=== PATIENT | male | born 1995 | race Caucasian/White ===

== ENCOUNTER 2024-05-05 00:29 | Emergency (ER) | payer OTHER, SELFPAY ==
[2024-05-05] VITALS (8 sets, daily range): BP systolic 100–133; BP diastolic 61–72; PULSE 104–118; RESP 14–16; TEMP 36.6; O2SAT 95–98; BMI 25.3
--- NOTE | 2024-05-05 00:42 | ED.GENADULT ---
HPI - General Adult General Chief complaint: Back Pain/Injury Stated complaint: lower back pain Time Seen by Provider: 05/05/24 00:37 Source: patient Mode of arrival: Ambulatory Limitations: no limitations History of Present Illness HPI narrative: 28-year-old male who is here for evaluation of several hours of what initially started as lower back discomfort but is now radiating around to the front of his abdomen. He did have a bowel movement since the onset of the symptoms which did not change any of his discomfort. No urinary symptoms. No diarrhea. No recent travel. No recent antibiotics. No nausea or vomiting. No fevers. Has not tried anything for the symptoms prior to arrival. Denies any specific trauma. Review of Systems Review of Systems Narrative: See HPI Patient History Social History Smoking Status: Current some day smoker Exam Initial Vital Signs Initial Vital Signs: Vital Signs Pulse Oximetry 97 05/05/24 00:34 Const General: cooperative, comfortable and No ill appearing HENMT Head: normal to inspection and normocephalic Resp Effort & Inspection: normal respiratory effort Auscultation: clear to auscultation bilaterally Cardio Rate: regular rate GI Inspection: normal to inspection and non-distended Palpation: No firm, No guarding and tender Back/Spine/Pelvis Thoracic/Lumbar Spine: paraspinal tenderness, No thoracic spinal tenderness and lumbar spinal tenderness Neuro General: patient alert, patient awake and moves all extremities Course Orders Ordered: ED Orders 05/05/24 00:43 CT abdomen pelvis w con Stat 05/05/24 00:50 Urine Microscopic Stat 05/05/24 00:54 Complete Blood Count AUTO DIFF Stat Comprehensive Metabolic Panel Stat Lipase Stat Discontinued Medications Ketorolac Tromethamine (Ketorolac 30 Mg/Ml Vial) 15 mg IV NOW ONE Stop: 05/05/24 00:43 Last Admin: 05/05/24 00:54 Dose: 15 mg Documented By: ABRAHAM Vital Signs Vital signs: Vital Signs - 8 hr 05/05/24 00:34 05/05/24 00:35 05/05/24 00:35 Temperature Pulse Rate 118 H Respiratory Rate Blood Pressure 133/72 Pulse Oximetry 97 97 Oxygen Delivery Method 05/05/24 00:36 05/05/24 00:53 05/05/24 00:53 Temperature 97.9 F Pulse Rate 112 H 114 H Respiratory Rate 16 16 Blood Pressure 133/72 100/67 Pulse Oximetry 97 98 Oxygen Delivery Method Room Air Room Air 05/05/24 01:14 05/05/24 01:14 05/05/24 01:30 Temperature Pulse Rate 110 H Respiratory Rate 16 Blood Pressure 102/61 103/62 Pulse Oximetry 97 Oxygen Delivery Method Room Air 05/05/24 01:30 05/05/24 01:59 05/05/24 02:00 Temperature Pulse Rate 107 H 104 H Respiratory Rate 14 Blood Pressure 109/70 Pulse Oximetry 96 95 Oxygen Delivery Method Room Air Medical Decision Making Lab Data Lab results reviewed: Yes I reviewed the patient's lab results. 05/05/24 00:54 05/05/24 00:54 Labs: Lab Results 05/05/24 05/05/24 Range/Units 00:50 00:54 WBC 12.1 H (4.5-11.0) X10^3/uL RBC 5.43 (4.5-5.9) X10^6/uL Hgb 16.2 (13.5-17.5) g/dL Hct 47.2 (41-53) % MCV 86.9 (80-100) fL MCH 29.9 (26-34) PG MCHC 34.4 (30-36) % RDW 13.1 (11.6-14.8) % Plt Count 293 (150-400) X10^3/uL Neut % (Auto) 91.1 H (50-75) % Lymph % (Auto) 3.3 L (25-40) % [place] % (Auto) 4.6 (3-14) % Eos % (Auto) 0.6 L (2-4) % Baso % (Auto) 0.4 (0-2) % Neut # (Auto) 50544 H (3041-3662) /uL Lymph # (Auto) 400 L (9046-8000) /uL [place] # (Auto) 600 (0-900) /uL Eos # (Auto) 100 (0-450) /uL Baso # (Auto) 0 (0-100) /uL Sodium 136 L (137-145) mmol/L Potassium 3.9 (3.4-5.1) mmol/L Chloride 104 (98-107) mmol/L Carbon Dioxide 22 (22-32) mmol/L BUN 18 (9-20) mg/dL Creatinine 0.86 (0.66-1.25) mg/dL Estimated GFR > 60 (>60) mL/min BUN/Creatinine Ratio 20.9 (6-22) Glucose 121 H (70-100) mg/dL Calcium 9.2 (8.4-10.2) mg/dL Total Bilirubin 0.9 (0.2-1.3) mg/dL AST 32 (17-59) IU/L ALT 28 (<50) IU/L Alkaline Phosphatase 51 (38-126) U/L Total Protein 7.3 (6.3-8.2) g/dL Albumin 4.6 (3.5-5.0) g/dL Globulin 2.7 (1.7-4.1) g/dL Albumin/Globulin Ratio 1.7 (1.0-2.8) Lipase 108 (23-300) U/L Urine RBC None seen (0-5/HPF) Urine WBC None seen (0-5/HPF) Ur Squamous Epith Cells 0-1 /hpf (0-5/HPF) Urine Bacteria None seen (None) Ur Culture Indicated? Cult not indicated Vol Urine Centrifuged 10ml (spun) Urine Dip Bedside Urine Glucose Negative Bedside Urine Bilirubin + 1 Bedside Urine Ketone ++ 40 Urine Specific [place] 1.025 Bedside Urine Occult Blood - Negative Bedside Urine pH 6 Bedside Urine Protein +/- 15 Bedside Urine Urobilinogen +/- 1mg Bedside Urine Nitrite - Negative Bedside Urine Leukocytes +/- 15 Esterase Point of care testing: Urine Dip Bedside Urine Glucose Negative Bedside Urine Bilirubin + 1 Bedside Urine Ketone ++ 40 Urine Specific [place] 1.025 Bedside Urine Occult Blood - Negative Bedside Urine pH 6 Bedside Urine Protein +/- 15 Bedside Urine Urobilinogen +/- 1mg Bedside Urine Nitrite - Negative Bedside Urine Leukocytes +/- [address] scan - abdomen/pelvis: Radiologist's Impression: PROCEDURE: CT ABDOMEN PELVIS W CON INDICATIONS: Generalized abdominal and low back pain TECHNIQUE: After the administration of intravenous contrast, axial sections acquired from the lung bases to the pubic symphysis. Coronal and sagittal reformats were performed. For radiation dose reduction, the following was used: automated exposure control, adjustment of mA and/or kV according to patient size. COMPARISON: None. FINDINGS: Image quality: Diagnostic. Lower Chest: No significant findings. ABDOMEN: Liver: No solid mass. Gallbladder: No radiopaque gallstones or wall thickening. Biliary ducts: No biliary dilation. Pancreas: No ductal dilation. Spleen: Size is within normal limits. Adrenal Glands: No adrenal nodules. Kidneys and Ureters: No hydronephrosis. No solid mass. No complex renal cystic lesion which requires follow up. Nonobstructing 4 mm calculus at the interpolar region of the left kidney. Stomach and Bowel: Liquid stool material is seen in the colon. Small appendiceal stump without inflammatory changes. Nondilated fluid-filled loops of small bowel are seen throughout the abdomen with mild bowel wall thickening. Peritoneum: No abnormal intraperitoneal fluid. No free air. Ventral Wall: No significant ventral hernia. Abdominal Nodes: No retroperitoneal or mesenteric adenopathy by size criteria. Vessels: Aorta and inferior vena cava are normal in size. PELVIS: Pelvic Organs: Unremarkable. Bladder: No bladder wall thickening, accounting for underdistention. Pelvic Nodes: No enlarged lymph nodes. Miscellaneous: No inguinal hernias are seen. Bones: No aggressive osseous abnormality. IMPRESSION: 1. Nondilated fluid-filled loops of small large bowel in the abdomen with mild bowel wall thickening, suspicious for a nonspecific enterocolitis. 2. Non-obstructing 4 mm calculus at the interpolar region of the left kidney. No hydronephrosis. MDM Narrative Medical decision making narrative: CT scan is consistent with the enterocolitis. His labs are unremarkable. I have low suspicion for aortic pathology. Low suspicion for kidney stone/ureteral stone he was had his appendix removed. There was no indication for antibiotics. No indication for surgical consultation discharge return precautions. He expressed understanding and agreement with plan. Discharge Plan Departure Patient Disposition: Home Clinical Impression: Enterocolitis Instructions: DI for Abdominal Pain-Adult Activity Restrictions/Additional Instructions: I would recommend a bland diet for the next couple days. You may develop some loose stools/diarrhea during this time as well. Be sure that you are staying hydrated. Return to the emergency department for new or worsening symptoms. Stand Alone Forms: Patient Portal/API/Survey
[2024-05-05] MEDS: KETOROLAC 30 MG/ML VIAL 15 MG IV (00:54)
--- NOTE | 2024-05-05 01:02 | PC.NURSE ---
Pt ambulatory to restroom where pt reports an episode of diarrhea, then to imaging via wheel chair with tech.
[2024-05-05 01:09] LABS: Add Manual Diff / Slide Review NO; Basophils Absolute Auto 0 /uL (0-100); Basophils Percent Auto 0.4 % (0-2); Eosinophils Absolute Auto 100 /uL (0-450); Eosinophils Percent Auto 0.6 % (2-4); Hematocrit 47.2 % (41-53); Hemoglobin 16.2 g/dL (13.5-17.5); Lymphocytes Absolute Auto 400 /uL (1100-4500); Lymphocytes Percent Auto 3.3 % (25-40); Mean Corpuscular HGB Conc 34.4 % (30-36); Mean Corpuscular Hemoglobin 29.9 PG (26-34); Mean Corpuscular Volume 86.9 fL (80-100); Monocytes Absolute Auto 600 /uL (0-900); Monocytes Percent Auto 4.6 % (3-14); Neutrophils Absolute Auto 11000 /uL (1500-7000); Neutrophils Percent Auto 91.1 % (50-75); Platelet Count 293 X10^3/uL (150-400); Red Blood Cell Count 5.43 X10^6/uL (4.5-5.9); Red Cell Distribution Width 13.1 % (11.6-14.8); White Blood Cell Count 12.1 X10^3/uL (4.5-11.0)
[2024-05-05 01:17] LABS: Bacteria Urine None Seen; Culture Indicated Urine Cult Not Indicated; RBC Urine None Seen (0-5/HPF); Squamous Epithelial Cell Urine 0-1 /HPF (0-5/HPF); Urine Volume 10mL (spun); WBC Urine None Seen (0-5/HPF)
[2024-05-05 01:22] LABS: Alanine Aminotransferase 28 IU/L (<50); Albumin 4.6 g/dL (3.5-5.0); Albumin Globulin Ratio 1.7 (1.0-2.8); Alkaline Phosphatase 51 U/L (38-126); Aspartate Aminotransferase 32 IU/L (17-59); BUN Creatinine Ratio 20.9 (6-22); Bilirubin Total 0.9 mg/dL (0.2-1.3); Blood Urea Nitrogen 18 mg/dL (9-20); Calcium 9.2 mg/dL (8.4-10.2); Carbon Dioxide 22 mmol/L (22-32); Chloride 104 mmol/L (98-107); Estimated Glomerular Filt Rate > 60 mL/min (>60); Globulin 2.7 g/dL (1.7-4.1); Glucose 121 mg/dL (70-100); HEMOLYSIS 17 (0-50); Lipase 108 U/L (23-300); Potassium 3.9 mmol/L (3.4-5.1); Sodium 136 mmol/L (137-145); Total Protein 7.3 g/dL (6.3-8.2)
--- NOTE | 2024-05-05 02:01 | PC.NURSE ---
Dr. East at bedside
== END 2024-05-05 02:07 | disposition home or self-care (01) ==
PROVIDERS: Emergency Provider Emergency Medicine
DX: K52.9 Noninfective gastroenteritis and colitis, unspecified (principal)
CPT/HCPCS: 36415; 74177; 80053; 81003; 81015; 83690; 85025; 96374; 99284; J1885; Q9967